=== PATIENT | female | born 1935 | race Caucasian/White ===

== ENCOUNTER 2016-11-14 15:16 | Outpatient (CLI) | payer OTHER | END 2016-11-14 20:00 | disposition home or self-care (01) | LOC: SRD 15:16 | PROVIDERS: ATTEND Family Medicine | DX: J20.9 Acute bronchitis, unspecified (principal); I70.90 Unspecified atherosclerosis; M47.899 Other spondylosis, site unspecified | CPT/HCPCS: 71020-TC ==

== ENCOUNTER 2016-11-28 09:58 | Outpatient (CLI) | payer OTHER | END 2016-11-28 19:46 | disposition home or self-care (01) | LOC: SUS 09:58 | PROVIDERS: ATTEND Family Medicine | DX: E05.90 Thyrotoxicosis, unspecified without thyrotoxic crisis or storm (principal); E04.2 Nontoxic multinodular goiter | CPT/HCPCS: 76536-TC ==

== ENCOUNTER 2018-06-11 09:58 | Outpatient (CLI) | payer OTHER | END 2018-06-11 18:53 | disposition home or self-care (01) | LOC: SRD 09:58 | PROVIDERS: ATTEND Family Medicine | DX: S20.211A Contusion of right front wall of thorax, initial encounter (principal); I70.8 Atherosclerosis of other arteries; R07.81 Pleurodynia; X58.XXXA Exposure to other specified factors, initial encounter; Y93.89 Activity, other specified; Y92.89 Other specified places as the place of occurrence of the external cause; Y99.8 Other external cause status | CPT/HCPCS: 71100 ==